=== PATIENT | female | born 1935 | race Asian ===

== ENCOUNTER 2019-09-20 11:44 | Day surgery (SDC) | payer MEDICARE, OTHER ==
[~2019-09-20 11:44] MED LIST: CHONDR SU A NA/HYALUR INTRAOC KIT (SURGICARE) ONE; EPINEPHRINE INJ/PF 1 MG/1 ML AMPULE ONE; KETOROLAC TROMETHAMINE 0.45% 4 DROP/0.4 ML DROPERETTE OS PRN; LIDOCAINE 1%/PHENYLEPHRINE 1.5% 1 ML VIAL ONE; MITOMYCIN OPH SOLN 0.02% 2 ML OP PRN
[2019-09-20] MEDS ORDERED: POVIDONE-IODINE 5% OPH PREP SOLN 30 ML ONE (11:52)
[2019-09-20] MEDS ORDERED: LIDOCAINE 1%/EPINEPHRINE INJ 20 ML VIAL ONE (11:53)
[2019-09-20] MEDS ORDERED: BALANCED SALT IRRIG SOLN COMB2 15 ML BOTTLE ONE (11:53)
[2019-09-20] MEDS ORDERED: TOBRAMYCIN SULFATE/DEXAMETH OPH OINTMENT 3.5 GM ONE (11:53)
[2019-09-20] MEDS: TETRACAINE HCL 0.5% OPH SOLN 4 ML OS PRN ×3 (12:35→12:59)
[2019-09-20] MEDS: BESIFLOXACIN HCL 0.6% OPH SUSP 5 ML BOTTLE OS PRN ×2 (12:35→12:50)
[2019-09-20] MEDS ORDERED: MIDAZOLAM 2 MG/2 ML INJ ONE (12:43)
--- NOTE | 2019-09-20 14:15 | Operative Report ---
Operative Report-[facility] Operative Report: See the scanned note
== END 2019-09-20 14:22 | disposition home or self-care (01) ==
LOC: SC 11:44
PROVIDERS: ATTEND Ophthalmology
DX: H11.042 Peripheral pterygium, stationary, left eye (principal); Z79.899 Other long term (current) drug therapy; I10 Essential (primary) hypertension; E78.00 Pure hypercholesterolemia, unspecified
CPT/HCPCS: 88304 ×2; 00142; 65426; C9250; J2250; J3490 ×5; A9270 ×2; J0171; J9280; 142; 88305